=== PATIENT | female | born 1955 | race Two or more races ===

== ENCOUNTER → 2018-07-20 | Outpatient (CLI) | payer BC ==
--- NOTE | 2018-07-20 17:30 | CONS ---
CONSULTATION REASON FOR CONSULTATION: Memory loss. Sleep apnea suspected. 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 She claims that she is able to do her job without any major difficulty. She has good recollection of her duties and tasks at work. However she is having regular memory loss to the point where she was unable to tell me her routine sleep schedule. 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 However she has spent most of the time in bed during the day. Her is a retired or disabled. Lives with her and he is the one who cooks meals. She ultimately gets out of bed around 4:00 pm and she feels fatigued and tired. She occasionally grinds her teeth and she has snoring and she has been told by her she quits breathing at nighttime. The CT scan of the brain that was done by Dr. Tsang showed evidence of small vessel disease ischemia in addition to more focal area of right adams radiata suspicious for developing of a subacute or chronic infarct. No meningitis. No head trauma. No ataxia. No urinary incontinence. No neurology evaluation has been done. PAST MEDICAL HISTORY: Depression, CVA, hypertension. SURGICAL HISTORY: Includes a and previous history of stomach surgery. DRUG ALLERGIES: Not known. OUTPATIENT MEDICATION: Include citalopram 20 mg p.o. daily and metoprolol 20 mg twice a day. SOCIAL HISTORY: Nonsmoker. No history of alcohol. No history of IV drugs. FAMILY HISTORY: Negative for sleep apnea. REVIEW OF SYSTEMS: 12-point review of system was done. Positive findings are mentioned above history of present illness. Denies choking or gasping for air while asleep. No nocturia. No dry mouth. No anxiety or panic attacks. No palpitation. No heartburn. No claustrophobia. No anxiety. No sexual dysfunction. PHYSICAL EXAMINATION: BP is 182/99, pulse 62, respirations 16, temp 98.1. Saturation 97% on room air. Weight is 144, height is 4 feet 7 inches. Neck size 13-3/4 of an inch. GENERAL APPEARANCE: Calm, comfortable. Head is atraumatic, normocephalic. NECK: Supple. Mallampati Class 1. No goiter. No neck masses. LUNGS: Clear to auscultation. HEART: Sounds regular rate and rhythm. Normal S1, S2. No S3. No murmurs. ABDOMEN: Soft, nontender. No organomegaly. EXTREMITIES: No edema. No cyanosis or clubbing. NEUROLOGICALLY: Memory deficit mainly short-term memory. No focal neurological deficits. No gait dysfunction. IMPRESSION: 1. Snoring with of sleep apnea. Although my suspicion is low. 2. Memory loss, concern for early signs of dementia. Unlikely this is related to any form of sleep breathing disorder. 3. Cerebrovascular accident as noted on the CT scan of the brain. 4. Hypertension with elevated blood pressure. 5. History of depression. PLAN: 1. 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 To complete the workup we will do a morning study to rule out an underlying sleep breathing disorder. The patient will be asked to come in the morning after work to undergo polysomnogram. 2. A neurology evaluation is obviously recommended in this clinical setting. 3. Refer this patient back to the primary care physician for blood pressure management and adjustment. 4. We will continue to follow and make recommendations based on results of the sleep study. MMODL / IJN: [id number] /
== END ==
LOC: SLEEP 14:37
PROVIDERS: ATTEND Internal Medicine Critical Care Medicine
DX: R06.83 Snoring (principal); I63.9 Cerebral infarction, unspecified; I10 Essential (primary) hypertension; F32.9 Major depressive disorder, single episode, unspecified; R41.3 Other amnesia; Z79.899 Other long term (current) drug therapy
CPT/HCPCS: 99211